=== PATIENT | female | born 2005 | race Caucasian/White ===

== ENCOUNTER 2024-07-17 13:28 | Emergency (ER) | payer MEDICAID, SELFPAY ==
--- NOTE | ~2024-07-17 | US_ITS ---
EXAMINATION: US OB follow up DATE: 07/17/2024 14:30 INDICATION: Abdominal cramping during of indeterminate age TECHNIQUE: Real-time ultrasound of the pelvis was performed. The interpreting radiologist was not pre sent for the study. COMPARISON: None. FINDINGS: There is a single living fetus in breech presentation. The placenta is anterior and not low-lying. F etal heart rate is 140 beats per minute (bpm). The amniotic fluid index is 12.4 cm, which is normal. The following biometric data were obtained: BPD: 6.4 cm -> 26 weeks 0 days Head circumference: 24.5 cm -> 26 weeks 4 days Abdominal circumference: 21.6 cm -> 26 weeks 1 days Femur length: 4.8 cm -> 26 weeks 1 days These measurements are concordant. Head circumference to abdominal circumference ratio: 1.13 (normal range 1.05-1.22). Estimated weight: 898 g (+/-) 135 g or 2 lbs. 0 oz. (+/-) 5 oz. IMPRESSION: 1. Single living fetus in vertex presentation with heart rate of 140 bpm. 2. Gestational age by ultrasound of 26 weeks 2 day(s) +/- 1 week(s) 6 day(s) with ultrasound estimate d date of delivery (JOSE GUADALUPE) of 10/21/2024. Estimated weight is >97th percentile by Hadlock criteria when 12/17/2024 is used as the JOSE GUADALUPE. Please correlate with clinical information or earlier ultrasound s for most accurate JOSE GUADALUPE. 3. Normal amniotic fluid index of 12.4 cm. Reviewed, dictated and finalized at location A. IMPRESSION: 1. Single living fetus in vertex presentation with heart rate of 140 bpm. 2. Gestational age by ultrasound of 26 weeks 2 day(s) +/- 1 week(s) 6 day(s) wi th ultrasound estimated date of delivery (JOSE GUADALUPE) of 10/21/2024. Estimated we ight is >97th percentile by Hadlock criteria when 12/17/2024 is used as the JOSE GUADALUPE . Please correlate with clinical information or earlier ultrasounds for most ac curate JOSE GUADALUPE. 3. Normal amniotic fluid index of 12.4 cm.
[2024-07-17 13:49] VITALS: BP 126/79; PULSE 98; RESP 16; TEMP 36.6; O2SAT 100
--- NOTE | 2024-07-17 13:53 | ED.PREGNANCY ---
HPI - General Chief complaint: Abdominal Pain Stated complaint: abdominal cramp, preg, unknown JOSE GUADALUPE Time Seen by Provider: 07/17/24 13:50 Focused HPI: Patient is a 19-year-old female presents to the ER with abdominal cramping. She reports she is unsure when her last menstrual period was but she thinks it was in March 2024. Patient does not have an OBGYN. She reports this is her 2nd . Patient reports her abdominal cramping started ?a few days ago. She denies any vaginal bleeding, recent fevers, urinary symptoms, or back pain. GENERAL: Well-appearing, well-nourished, and in no acute distress. HEAD: Normocephalic, atraumatic. CHEST: Clear to auscultation. ?No respiratory distress. HEART: Regular rate and rhythm.? NEURO: ?Alert and oriented x3. Patient screened in triage and initial orders placed.? ?Additional care and disposition to be based upon?diagnostic testing and treatment. Related Data Allergies Allergy/AdvReac Type Severity Reaction Status Date / Time No Known Allergies Allergy Verified 07/17/24 15:04 Review of Systems Review of Systems: All systems reviewed & are unremarkable except as noted in HPI and below PMFSH Comments Per pt's mother, she has a history of a previous with + substance abuse. Exam Narrative: GENERAL: Well appearing, well-nourished, non-toxic, in no acute distress. HEAD: Normocephalic, atraumatic. NECK: Supple. No adenopathy, no masses. RESPIRATORY: Airway patent, respirations nonlabored. Clear to auscultation bilaterally, no rales, rhonchi, wheezing. CARDIOVASCULAR: Regular rate and rhythm without murmurs, rubs, or gallops. Peripheral pulses 2+ and equal bilaterally. ABDOMINAL: Soft, nontender, nondistended, no hepatosplenomegaly. Normoactive BS. MUSCULOSKELETAL: Moves all extremities. Strength/ROM intact without gross deformities. SKIN: Warm, dry, normal color. No rashes. NEURO: A&O X3. Speech clear. Cranial nerves II-XII intact. No ataxic movements. PSYCHIATRIC: Appropriate mood and affect. Normal interaction. Course Vital Signs Vital signs: Vital Signs Temperature 36.6 C 07/17/24 13:49 Pulse Rate 98 05/12/25 13:49 Respiratory Rate 16 07/17/24 13:49 Blood Pressure 126/79 07/17/24 13:49 Pulse Oximetry 100 07/17/24 13:49 Oxygen Delivery Room Air 07/17/24 13:49 Temperature 36.6 C 07/17/24 13:49 Pulse Rate 98 07/17/24 13:49 Respiratory Rate 16 07/17/24 13:49 Blood Pressure 126/79 07/17/24 13:49 Pulse Oximetry 100 07/17/24 13:49 Oxygen Delivery Room Air 07/17/24 13:49 MDM - OB/Uterine Contractions MDM Narrative Medical decision making narrative: Patient is a 19-year-old female presents to the ER with abdominal cramping. She reports she is unsure when her last menstrual period was but she thinks it was in March 2024. Patient does not have an OBGYN. She reports this is her 2nd . Patient reports her abdominal cramping started ?a few days ago. She denies any vaginal bleeding, recent fevers, urinary symptoms, or back pain. Labs Ordered: CBC, CMP, beta hCG quant, lipase, UA, UDS, type and screen Imaging Ordered: Ultrasound Ob Medications Ordered: 1L NS IV bolus Results: Pt's US indicates Single living fetus in vertex presentation with heart rate of 140 bpm. 2. Gestational age by ultrasound of 26 weeks 2 day(s) +/- 1 week(s) 6 day(s) with ultrasound estimated date of delivery (JOSE GUADALUPE) of 10/21/2024. Estimated weight is >97th percentile by Hadlock criteria when 12/17/2024 is used as the JOSE GUADALUPE. Please correlate with clinical information or earlier ultrasounds for most accurate JOSE GUADALUPE. 3. Normal amniotic fluid index of 12.4 cm. [place] [address], which is appropriate for her diagnosed week of . Patient's urinalysis did not indicate a UTI. Her blood work indicates mild dehydration. Pt's UDS was positive for marijuana. Diagnosis: 26 week of , mild dehydration Consults: 1530- Requesting OB to come monitor pt as she endorses intermittent abdominal cramping. Patient Education/Shared MDM: non-stress test was within normal limits. She was given 1 L normal saline IV bolus here in the ER due to her mild dehydration. Results of lab work and imaging shared with patient. She reports she has not experienced any more abdominal cramping since she arrived in the ER. Patient strongly advised to maintain hydration status upon discharge and follow-up with an OBGYN as soon as possible. She will be discharged home with a prescription for vitamins. Strict return precautions provided. Patient verbalized understanding and is in agreement with plan. Vital signs stable at time of discharge. All questions answered. Differential Diagnosis Differential diagnosis: Likely other (-1st trimester, [id number], pre term delivery, urinary tract infection) Lab Data Attestation: I reviewed the patient's lab results. 07/17/24 14:52 07/17/24 14:52 Labs: Lab Results 07/17/24 07/17/24 07/17/24 Range/Units 14:42 14:49 14:50 WBC (4.5-10.0) K/mm3 RBC (4.2-5.4) M/mm3 Hgb (12.0-15.0) g/dL Hct (37.0-47.0) % MCV (80-100) fl MCH (26-34) pg MCHC (32-36) g/dl RDW (11.5-14.5) % Plt Count (150-375) k/mm3 MPV (7.4-10.4) fl Immature Gran % (Auto) (0-0.5) % Neut % (Auto) (45.5-73.1) % Lymph % (Auto) (18.3-44.2) % [place] % (Auto) (2.6-8.5) % Eos % (Auto) (0-4.4) % Baso % (Auto) (0.2-1.2) % Lymph # (Auto) (0.9-3.2) K/mm3 [place] # (Auto) (0.1-0.6) K/mm3 Eos # (Auto) (0-0.3) K/mm3 Baso # (Auto) (0.0-0.1) K/mm3 Abs Immat Gran (auto) (0.00-0.031) K/mm3 Absolute Neuts (auto) (1.3-6.7) K/mm3 Absolute Nucleated RBC (0.0-0.012) K/mm3 Nucleated RBC % (0.0-0.2) % Sodium (137-145) mmol/L Potassium (3.4-5.0) mmol/L Chloride (98-107) mmol/L Carbon Dioxide (22-30) mmol/L Anion Gap (4-12) mmol/L BUN (7-17) mg/dL Creatinine (0.7-1.0) mg/dL Estim Creat Clear Calc ml/min Estimated GFR (59 - ) Glucose (65-110) mg/dL Calcium (8.4-10.2) mg/dL Total Bilirubin (0.2-1.3) mg/dL AST (14-36) U/L ALT (6-35) U/L Alkaline Phosphatase (38-126) U/L Total Protein (6.3-8.2) g/dL Albumin (3.5-5.1) g/dL Lipase (23-300) U/L Beta HCG, Quant mIU/ML Urine Color Yellow (Yellow) Urine Appearance Clear (Clear) Urine pH 8.0 (5.0-9.0) Ur Specific [place] 1.015 (1.001-1.035) Urine Protein Negative (Negative) mg/dL Urine Glucose (UA) Negative (Negative) mg/dL Urine Ketones Negative (Negative) mg/dL Ur Blood (Man) Negative (Negative) Urine Nitrate Negative (Negative) Urine Bilirubin Negative (Negative) Urine Urobilinogen 0.2 (<2.0) mg/dL Leukocyte Esterase Rfl Negative (Negative) HAN/UL POC Urine HCG, Qual Positive (Negative) Urine Opiates Screen Negative (Negative) Urine Methadone Screen Negative (Negative) Ur Barbiturates Screen Negative (Negative) Ur Phencyclidine Scrn Negative (Negative) Ur Amphetamine Screen Negative (Negative) U Benzodiazepines Scrn Negative (Negative) Urine Cocaine Screen Negative (Negative) U Cannabinoids Screen Positive A (Negative) Blood Type O Positive Antibody Screen Pending Doses of RhIg Required Pending 07/17/24 Range/Units 14:52 WBC 10.7 H (4.5-10.0) K/mm3 RBC 3.79 L (4.2-5.4) M/mm3 Hgb 11.5 L (12.0-15.0) g/dL Hct 34.7 L (37.0-47.0) % MCV 91.6 (80-100) fl MCH 30.3 (26-34) pg MCHC 33.1 (32-36) g/dl RDW 12.8 (11.5-14.5) % Plt Count 220 (150-375) k/mm3 MPV 9.6 (7.4-10.4) fl Immature Gran % (Auto) 0.9 H (0-0.5) % Neut % (Auto) 69.3 (45.5-73.1) % Lymph % (Auto) 21.2 (18.3-44.2) % [place] % (Auto) 7.0 (2.6-8.5) % Eos % (Auto) 1.3 (0-4.4) % Baso % (Auto) 0.3 (0.2-1.2) % Lymph # (Auto) 2.27 (0.9-3.2) K/mm3 [place] # (Auto) 0.8 H (0.1-0.6) K/mm3 Eos # (Auto) 0.1 (0-0.3) K/mm3 Baso # (Auto) 0.0 (0.0-0.1) K/mm3 Abs Immat Gran (auto) 0.10 H (0.00-0.031) K/mm3 Absolute Neuts (auto) 7.4 H (1.3-6.7) K/mm3 Absolute Nucleated RBC 0.000 (0.0-0.012) K/mm3 Nucleated RBC % 0.0 (0.0-0.2) % Sodium 135 L (137-145) mmol/L Potassium 3.7 (3.4-5.0) mmol/L Chloride 107 (98-107) mmol/L Carbon Dioxide 21 L (22-30) mmol/L Anion Gap 7 (4-12) mmol/L BUN 5 L (7-17) mg/dL Creatinine 0.42 L (0.7-1.0) mg/dL Estim Creat Clear Calc 217 ml/min Estimated GFR > 60 (59 - ) Glucose 104 (65-110) mg/dL Calcium 8.7 (8.4-10.2) mg/dL Total Bilirubin 0.2 (0.2-1.3) mg/dL AST 22 (14-36) U/L ALT 20 (6-35) U/L Alkaline Phosphatase 72 (38-126) U/L Total Protein 6.0 L (6.3-8.2) g/dL Albumin 3.4 L (3.5-5.1) g/dL Lipase 96 (23-300) U/L Beta HCG, Quant 13577.00 mIU/ML Urine Color (Yellow) Urine Appearance (Clear) Urine pH (5.0-9.0) Ur Specific [place] (1.001-1.035) Urine Protein (Negative) mg/dL Urine Glucose (UA) (Negative) mg/dL Urine Ketones (Negative) mg/dL Ur Blood (Man) (Negative) Urine Nitrate (Negative) Urine Bilirubin (Negative) Urine Urobilinogen (<2.0) mg/dL Leukocyte Esterase Rfl (Negative) HAN/UL POC Urine HCG, Qual (Negative) Urine Opiates Screen (Negative) Urine Methadone Screen (Negative) Ur Barbiturates Screen (Negative) Ur Phencyclidine Scrn (Negative) Ur Amphetamine Screen (Negative) U Benzodiazepines Scrn (Negative) Urine Cocaine Screen (Negative) U Cannabinoids Screen (Negative) Blood Type Antibody Screen Doses of RhIg Required Imaging Data Attestation: I personally reviewed and interpreted this imaging study as follows: Radiologist's impression: Impressions Obstetrics Ultrasound 07/17/24 14:39 IMPRESSION: 1. Single living fetus in vertex presentation with heart rate of 140 bpm. 2. Gestational age by ultrasound of 26 weeks 2 day(s) +/- 1 week(s) 6 day(s) with ultrasound estimated date of delivery (JOSE GUADALUPE) of 10/21/2024. Estimated weight is >97th percentile by Hadlock criteria when 12/17/2024 is used as the JOSE GUADALUPE. Please correlate with clinical information or earlier ultrasounds for most accurate JOSE GUADALUPE. 3. Normal amniotic fluid index of 12.4 cm. Discharge Plan Discharge Clinical Impression: Second trimester , Dehydration, mild Patient Disposition: Home Condition: Stable Instructions: Antibiotic Form, at 23 to 26 Weeks (ED) Additional Instructions: Please return to the ER with any worsening symptoms. Follow-up with an OBGYN as soon as possible. Take all medications as prescribed. Continue to eat healthy and avoid alcohol, cigarettes, nicotine, and other illicit drugs. Patient Language: Kinyarwanda Prescriptions: New One Daily [phone] mg-mcg-mg combo pack 1 pkg PO DAILY Qty: 60 0RF Follow-up/Referrals: Daniel Welch MD [Physician] - (OBGYN) Nain Jeuss MD [Physician] - (OBGYN) Nemo Randall MD [Physician] - (OBGYN ) PHYSICIAN,SENIOR USER EXPERIENCE ARCHITECT [Non-Staff] - Wil Powers MD [Physician] - (OBGYN) Time of Disposition: 16:22
[2024-07-17 14:43] LABS: BEDSIDEPREGUCG Positive (Negative)
[2024-07-17 15:02] LABS: Add Urine Microscopic? NO; Appearance Urine Clear (Clear); Bilirubin Urine Negative (Negative); Blood Urine Negative (Negative); Color Urine Yellow (Yellow); Glucose Urine UA Negative (Negative); Ketones Urine Negative (Negative); Leukocyte Esterase Ur Negative LEU/UL (Negative); Nitrate Urine Negative (Negative); Protein Urine Negative (Negative); Specific Grav Ur 1.015 (1.001-1.035); Urobilinogen Urine 0.2 mg/dL (<2.0)
--- OUTSIDE RECORDS SUMMARY | 2024-07-17 15:12 | XMS_ITS | Patient Health Record ---
[facility] Address [address] [place] [address] Care Team Providers Care Vp Compliance Name Role Phone Sera Patterson Primary Care Provider Allergies Allergen (clinical drug ingredient) Drug/Non Drug Allergy documented on EMR Reaction Allergy Type Onset Date Status cephalexin Cephalexin hives Drug Allergy Activ e fluoxetine Fluoxetine hives Drug Allergy Activ e Reason For Referral No Information Medications Medication SIG (Take, Route, Frequency, Duration) Notes Start Date End Date Status Citalopram Hydrobromide 20 MG 1 tablet Orally Once a day Active Prerna 0.25-35 MG-MCG as directed Orally Active Nicorette 4 MG 1 piece chew for 30 minutes as needed Mouth/Throat every 8 hrs Active hydrOXYzine HCl 25 MG 1-2 tablets as nee ded Orally every 4 hours Active Social History Tobacco Use: Social History Observation Description Date Details (start date - stop date) Current Smoker NA - NA Tobacco Control (Standard) Question Answer Notes Tobacco use: Current every day smoker Additional Findings: Tobacco user e-cigarette Plan Of Treatment No Information Insurance Providers Payer Name Payer Address Payer Phone Subscriber Number Group Number Insured Name Patient Relationship to Insured Coverage Start Date Coverage End Date MEDICAID [address] [phone] [id number] Sridevi Coyne Self - patient is the insured 4 Medical (General) History Medical History History ICD Code irritable bowel syndrome Hospitalization History Reason Date(Month/Year) child 2022
[2024-07-17 15:15] LABS: Basophils Percent Auto 0.3 % (0.2-1.2); Eosinophils Absolute Auto 0.1 K/mm3 (0-0.3); Eosinophils Percent Auto 1.3 % (0-4.4); Hematocrit 34.7 % (37.0-47.0); Hemoglobin 11.5 g/dL (12.0-15.0); Immature Granulocyte Percent A 0.9 % (0-0.5); Lymphocytes Absolute Auto 2.27 K/mm3 (0.9-3.2); Lymphocytes Percent Auto 21.2 % (18.3-44.2); Mean Corpuscular HGB Conc 33.1 g/dl (32-36); Mean Corpuscular Hemoglobin 30.3 pg (26-34); Mean Corpuscular Volume 91.6 fl (80-100); Mean Platelet Volume 9.6 fl (7.4-10.4); Monocytes Absolute Auto 0.8 K/mm3 (0.1-0.6); Neutrophils Absolute Auto 7.4 K/mm3 (1.3-6.7); Neutrophils Percent Auto 69.3 % (45.5-73.1); Platelet Count Result 220 k/mm3 (150-375); Red Blood Count 3.79 M/mm3 (4.2-5.4); Red Cell Distribution Width 12.8 % (11.5-14.5); White Blood Count 10.7 K/mm3 (4.5-10.0)
[2024-07-17 15:27] LABS: Alanine Aminotransferase 20 U/L (6-35); Albumin Level 3.4 g/dL (3.5-5.1); Alkaline Phosphatase 72 U/L (38-126); Anion Gap 7 mmol/L (4-12); Aspartate Amino Transferase 22 U/L (14-36); Bilirubin,Total 0.2 mg/dL (0.2-1.3); Blood Urea Nitrogen 5 mg/dL (7-17); Calcium 8.7 mg/dL (8.4-10.2); Carbon Dioxide 21 mmol/L (22-30); Chloride 107 mmol/L (98-107); Estimated CRCL calculation 217 ml/min; Estimated Glomerular Filt Rate > 60; Glucose 104 mg/dL (65-110); Lipase 96 U/L (23-300); Potassium 3.7 mmol/L (3.4-5.0); Sodium 135 mmol/L (137-145)
[2024-07-17] MEDS: SODIUM CHLORIDE 0.9% IV 1,000 ML 999 ML IV CONT (15:32)
[2024-07-17 15:39] LABS: Amphetamine Screen Urine Negative (Negative); Barbiturate Screen Urine Negative (Negative); Benzodiazepines Screen Urine Negative (Negative); Cannabinoid Screen Urine Positive (Negative); Cocaine Screen Urine Negative (Negative); Methadone Screen Urine Negative (Negative); Opiate Screen Urine Negative (Negative); Phencyclidine Screen Urine Negative (Negative)
== END 2024-07-17 16:29 | disposition home or self-care (01) ==
PROVIDERS: Emergency Provider Registered Nurse
DX: O99.282 Endocrine, nutritional and metabolic diseases complicating pregnancy, second trimester (principal); E86.0 Dehydration; Z3A.26 26 weeks gestation of pregnancy
CPT/HCPCS: 36415; 76816; 80053; 80307; 81003; 81025; 83690; 84702; 85025; 85461; 86850; 86900; 86901; 96360; 99284; J7030